=== PATIENT | male | born 1955 | race Caucasian/White ===

== ENCOUNTER → 2020-12-09 | Outpatient (CLI) | payer MEDICARE ==
[~2020-12-09] MED LIST: CORTISPORIN OTI10 M1 EARRT; LAMISIL AT 15 G15 GM TOP
== END ==
LOC: CT 10:30
DX: R51.9 Headache, unspecified (principal); I80.3 Phlebitis and thrombophlebitis of lower extremities, unspecified; Z79.01 Long term (current) use of anticoagulants
CPT/HCPCS: 70450